=== PATIENT | female | born 1985 | race Caucasian/White ===

== ENCOUNTER → 2023-05-20 14:25 | Outpatient (REF) | payer BC, SELFPAY | LOC: DHCBC MAIN 14:25 | PROVIDERS: ATTENDING PHYSICIAN Internal Medicine Cardiovascular Disease; FAMILY PHYSICIAN Emergency Medicine | DX: I49.8 Other specified cardiac arrhythmias (principal); Q79.60 Ehlers-Danlos syndrome, unspecified; I77.810 Thoracic aortic ectasia | CPT/HCPCS: 93306 ==

== ENCOUNTER → 2023-08-20 15:25 | Outpatient (REF) | payer BC, SELFPAY | LOC: RAD 15:25 | PROVIDERS: ATTENDING PHYSICIAN Emergency Medicine | DX: Q79.62 Hypermobile Ehlers-Danlos syndrome (principal); R22.1 Localized swelling, mass and lump, neck | CPT/HCPCS: 76536 ==

== ENCOUNTER → 2024-07-05 12:44 | Outpatient (REF) | payer BC, SELFPAY | LOC: DHSLP 12:44 | PROVIDERS: ATTENDING PHYSICIAN Internal Medicine Critical Care Medicine; FAMILY PHYSICIAN Emergency Medicine | DX: G47.33 Obstructive sleep apnea (adult) (pediatric) (principal) | CPT/HCPCS: 95800 ==

== ENCOUNTER 2025-01-24 06:20 | Day surgery (SDC) | payer BC, SELFPAY ==
[2025-01-10 15:08] LABS: Hematocrit 38.6 % (37.0-47.0); Hemoglobin 12.9 g/dL (12.0-16.0); Mean Corp Hgb Conc. 33.4 g/dL (33.0-37.0); Mean Corpuscular Volume 92.6 fL (81.0-99.0); Platelet Count 285 10^3/uL (130-400); Red Cell Dist. Width 12.2 % (11.5-14.5)
[2025-01-10 15:14] LABS: INR 1.00; PT 13.5 Sec (11.4-14.6)
[2025-01-10 15:15] LABS: APTT 27.2 Sec (23.4-35.0)
[2025-01-24] VITALS (13 sets, daily range): BP systolic 109–130; BP diastolic 55–85; BMI 44.2
[2025-01-24] MEDS: NORMOSOL-R/PLASMALYTE-A 1000 IV (08:35)
--- NOTE | 2025-01-24 12:22 | OR.RPT ---
Operative Report
Operative Report
Patient name: Valerie Alves
Date of : 1985

Date of operation: 01/24/2025
Preoperative diagnosis: Nasal obstruction, deviated nasal septum, turbinate hypertrophy, chronic tonsillitis
Postoperative diagnosis: Same
Procedures performed: Septoplasty, inferior turbinate reduction, tonsillectomy
Surgeon: Marlo Dai DO
Anesthesiologist: Nellie
Anesthesia: General, ETT
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 She was diagnosed with nasal
obstruction secondary to turbinate hypertrophy and deviated nasal septum and chronic tonsillitis. We discussed the risks benefits alternatives to observation with medical management or surgical intervention with septoplasty, turbinate reduction and
tonsillectomy. We reviewed the risks of the operation which included pain, infection, bleeding in the form of epistaxis or post tonsillectomy hemorrhage. After careful deliberation the patient excepted these risks and agreed to proceed with
surgery.
Details of procedure: The patient was met in the preoperative holding area where all questions were answered and informed written consent was reviewed. She was taken back to the operating room and transferred supine on the operating room table. A
safety strap was placed and so were sequential, compression devices. General anesthesia was induced and the patient was intubated orotracheally without difficulty. After the tube was secured the table was rotated 90 degrees away from anesthesia.
A surgical timeout was performed confirming the necessary perioperative information. Afrin soaked cottonoid pledgets were placed in the bilateral nasal cavities. The operation began with the turbinate reduction. 1% lidocaine with epinephrine 1
100,000 was used to infiltrate the bilateral nasal cavities and nasal septum. A total of 10 cc was used. A #15 blade was utilized to make a stab incision in the anterior head of each inferior turbinate. A [place] elevator was used to establish a
submucous pocket along the length of the inferior turbinates. Then the microdebrider turbinate head was used to perform submucous resection. The turbinates were then outfractured using a combination of the Ellis bar and long nasal speculum.
Next the septoplasty was performed. A #15 blade was utilized to make a left hemitransfixion incision in the caudal edge of the septal cartilage. Incision was taken down through the mucosa and submucosa. An iris scissor and a [place] elevator was
used to establish a submucoperichondrial pocket which was then dissected into a plane. Dissection proceeded from anterior to posterior and superior to inferior and a submucoperichondrial fashion. A #15 blade was then used to make a trans
cartilaginous incision at least 1.5 cm back from the caudal edge of the septum. A contralateral submucoperichondrial pocket was elevated in order to isolate the cartilaginous and bony septums. Deviated portions of the septal cartilage were removed
using Herminio elevator, dorsal scissors and double-action rongeur. The maxillary crest was reasonably midline and left in place. Deviated portions and bony spurs of the bony septum were removed. The bilateral nasal cavities were drastically more
patent and the nasopharynx could be visualized at the end. A suction Bovie on a setting of 25 coag was used to ensure hemostasis of the anterior heads of each inferior turbinate. A 4-0 chromic suture in a simple interrupted fashion was used to
close the hemitransfixion incision. A quilting stitch was performed using a 4-0 plain gut suture on a Dhruv needle. Silicone Arce splints were placed bilaterally and sewn in place with a 2-0 silk stitch.
Next a shoulder roll was placed and attention was turned to the oral cavity to perform the tonsillectomy. A Deidra Gigi mouth retractor was placed and the oral cavity and width of the dentition was not wide enough to accommodate the larger Deidra
Gigi tongue depressor so the operative field had to be focused on 1 side of the pharynx at a time. Attention was turned to the right side first. The patient had a latex allergy so we could not use the classical red rubber catheter for trans
palatal retraction. We used a 16 [place]una catheter for trans palatal retraction. A Bovie monopolar cautery on a setting of 25 and a straight Allis was used to perform the right tonsillectomy. A setting of 25 cut was used to incise the mucosa.
A combination of cautery and blunt dissection was used to resect the right tonsil en bloc in a peritonsillar fascial/extracapsular plane. Dissection proceeded from medial to lateral and superior to inferior. Hemostasis was achieved with a suction
Bovie on a setting of 25 and 35 coag. A tonsil ball was placed to the right tonsillar fossa and attention was then turned to the left after the Deidra Gigi mouth retractor was repositioned. The same steps were repeated on the left side. The
tonsils were sent separately for pathology. The suction Bovie on a setting of 35 now was used for hemostasis in the bilateral tonsil fossa's. The Deidra Gigi mouth retractor was then let down to reveal any occult venous bleeding. There was none.
Next an additional 10 cc of 1% lidocaine with epinephrine 1 100,000 was used to radically anesthetize the pharynx at the conclusion of the procedure. The oropharynx was irrigated with saline and suctioned out. An orogastric tube was passed to
decompress the stomach. The shoulder roll was removed. This concluded the procedure and the patient was turned back to the anesthesia team where she emerged safely from anesthesia and was extubated without difficulty. She was taken to the PACU
stable condition.
Specimens: Bilateral tonsils, sent separate. Septal contents
Complications: None immediately present
Estimated blood loss: 15 cc
Disposition: Stable to PACU followed by discharge to home
[2025-01-24] MEDS: ZOFRAN 4 MG IV (12:56)
== END 2025-01-24 16:45 | disposition home or self-care (01) ==
LOC: SDS 06:20
PROVIDERS: ATTENDING PHYSICIAN Student in an Organized Health Care Education/Training Program; FAMILY PHYSICIAN Family Medicine
DX: J34.89 Other specified disorders of nose and nasal sinuses (principal); J34.2 Deviated nasal septum; J34.3 Hypertrophy of nasal turbinates; J35.01 Chronic tonsillitis
CPT/HCPCS: 30140; 30520; 42826; 36415; 85027; 85610; 85730; 86850; 86900; 86901; 88300; 88304